=== PATIENT | female | born 1940 | race Caucasian/White ===

== ENCOUNTER 2016-11-05 13:48 | Day surgery (SDC) | payer MEDICARE, BC ==
[~2016-11-05] VITALS: Ht 162.6 cm; Wt 70.0 kg
[2016-11-05] MEDS ORDERED: PRINIVIL5 MG PO (14:40)
[2016-11-05] MEDS ORDERED: LEXAPRO 10MG10 MG PO (14:40)
[2016-11-05] MEDS ORDERED: KEPPRA 500MG500 MG PO (14:40)
[2016-11-05] MEDS ORDERED: MULTIVITAMIN1 CTB PO (14:41)
[2016-11-05] MEDS ORDERED: FOSAMAX 70MG TA70 MG PO (14:41)
[2016-11-05] MEDS ORDERED: STOOL SOFTENER100 M2 PO (14:42)
[2016-11-05] MEDS ORDERED: CALCIUM 600MG+D1 TAB PO (14:44)
[2016-11-05 15:37] VITALS: BP 128/78; PULSE 100; TEMP 98
[2016-11-05 15:52] VITALS: BP 126/76; PULSE 94
[2016-11-05] MEDS ORDERED: PRIL40 PO (15:54)
[2016-11-05 16:07] VITALS: BP 122/82; PULSE 92
[2016-11-05 16:14] VITALS: BP 150/91; PULSE 102; TEMP 98.1
[2016-11-05 16:22] VITALS: BP 125/69; PULSE 90
[2016-11-05 16:52] VITALS: BP 135/85; PULSE 101
== END 2016-11-05 18:00 | disposition home or self-care (01) ==
LOC: SDCO 13:48
DX: K22.2 Esophageal obstruction (principal); K44.9 Diaphragmatic hernia without obstruction or gangrene; K21.0 Gastro-esophageal reflux disease with esophagitis; R13.12 Dysphagia, oropharyngeal phase; I10 Essential (primary) hypertension
CPT/HCPCS: J2250; J3010

== ENCOUNTER 2020-09-13 12:07 | Day surgery (SDC) | payer MEDICARE, BC ==
[~2020-09-13] VITALS: Ht 162.6 cm; Wt 73.5 kg
[~2020-09-13 12:07] MED LIST: CALCIUM 600MG+D1 TAB PO; FOSAMAX 70MG TA70 MG PO; KEPPRA 500MG500 MG PO; LEXAPRO 10MG10 MG PO; MULTIVITAMIN1 CTB PO; PRIL40 PO; PRINIVIL5 MG PO; STOOL SOFTENER100 M2 PO
[2020-09-13 12:52] VITALS: BP 146/73; PULSE 85; TEMP 98.2
[2020-09-13] MEDS ORDERED: LASIX 40MG TABL40 MG PO (13:03)
[2020-09-13] MEDS ORDERED: LASIX 20MG TABL20 MG PO (13:04)
[2020-09-13 14:35] VITALS: BP 155/77; PULSE 76; TEMP 97.7
--- NOTE | 2020-09-13 14:35 | NUR ---
PATIENT BROUGHT BACK TO BAY 3 VIA CART FROM PACU. PATIENT PLACED ON VITAL SIGNS MACHINE, STABLE. IV INFUSING TO LEFT HAND WITHOUT DIFFICULTY. PATIENT TRANSFERED TO [facility] WITHOUT DIFFICULTY. URINATED CLEAR PINK TINGED URINE. PLACED BACK INTO BED. REQUESTING SPRITE AND PUDDING. WARM BLANKET PROVIDED, CALL [facility] WITHIN REACH. WILL CONTINUE TO MONITOR.
[2020-09-13 14:45] VITALS: BP 162/62; PULSE 63
--- NOTE | 2020-09-13 14:45 | NUR ---
PATIENTS DAUGHTER UPDATED AT THIS TIME. STATES SHE WILL HEAD BACK TO THE HOSPTIAL SOON. PATIENT TOLERATING FOOD AND DRINK WITHOUT DIFFICULTY. DENIES PAIN OR NAUSEA. WILL MONITOR.
[2020-09-13 15:00] VITALS: BP 137/86; PULSE 63
--- NOTE | 2020-09-13 15:00 | NUR ---
PATIENT STATES HE FEELS READY TO GO HOME. VITAL SIGNS STABLE. IV REMOVED, INTACT.
--- NOTE | 2020-09-13 15:15 | NUR ---
DISCHARGE INSTRCUTIONS REVIEWED WITH PATIENT, ALL QUESTIONS ANSWERED. UROLOGY NUMBER PROVIDED. PATIENT TO GET DRESSED AT THIS TIME. THIS RN TO HELP.
--- NOTE | 2020-09-13 15:25 | NUR ---
PATIENT BROUGHT DOWN TO LOBBY VIA WHEEL CHAIR. PATIENTS DAUGHTER RUSSELL AT FRONT DOOR. PUT IN CAR, TO BE DRIVEN HOME BY DAUGHTER. ALL QUESTIONS ANSWERED.
== END 2020-09-13 15:25 | disposition home or self-care (01) ==
LOC: SDCO 12:07
DX: N13.2 Hydronephrosis with renal and ureteral calculous obstruction (principal); I50.9 Heart failure, unspecified; I11.0 Hypertensive heart disease with heart failure; M81.0 Age-related osteoporosis without current pathological fracture; F41.1 Generalized anxiety disorder; Z88.1 Allergy status to other antibiotic agents; Z88.0 Allergy status to penicillin; Z88.8 Allergy status to other drugs, medicaments and biological substances; Z90.710 Acquired absence of both cervix and uterus; K21.9 Gastro-esophageal reflux disease without esophagitis; F32.9 Major depressive disorder, single episode, unspecified; M19.90 Unspecified osteoarthritis, unspecified site; G40.909 Epilepsy, unspecified, not intractable, without status epilepticus; Z20.828 Contact with and (suspected) exposure to other viral communicable diseases
CPT/HCPCS: J0690; J2405; J2704; J3010; J7120; Q9967